=== PATIENT | male | born 1945 | race Caucasian/White ===

== ENCOUNTER 2016-04-07 10:08 | Inpatient (IN) | payer OTHER ==
[~2016-04-07] VITALS: Ht 172.7 cm; Wt 82.1 kg
--- NOTE | ~2016-04-07 | D ---
[facility] [place] [address] DISCHARGE SUMMARY Name: RYAN MORTENSEN Room #: 460-P [facility] IN M.R.#: [id number] Admission: 04/07/16 Attend Phys: Tim Machuca MD Discharge: 04/13/16 Date of : 41 Report #: [id number] THIS REPORT FOR: //name// CC: Tim Locke DATE OF SERVICE: 04/12/2016 TYPE OF DICTATION: Discharge Summary. After bngp-bm-cnnw encounter, I did see the patient and examined him on the day of discharge, 04/12/2016. DISCHARGE DIAGNOSES: 1. Chronic obstructive pulmonary disease exacerbation. 2. Hypertension. 3. Hyperlipidemia. 4. Gastroesophageal reflux disease. 5. Coronary artery disease, status post stents x 1. 6. Peripheral vascular disease. 7. Insulin-dependent diabetes mellitus. 8. Arthritis. 9. Acute lower respiratory infection and bronchitis. 10. Acute hypoxic respiratory failure, resolved. 11. Sleep disorder, may be ____ obstructive sleep apnea with recommendation of PSG as an outpatient. DISCHARGE MEDICATIONS: See discharge summary. HOSPITAL COURSE: The patient was admitted to the hospital secondary to COPD exacerbation and short of breath. The patient was started on antibiotics and bronchodilators and steroids. Influenza was checked, nicotine patch was applied to him and counseling for smoking cessation and BiPAP in the same time. Pulmonary were consulted on admission and the patient was seen by Dr. Jewell in consultation and he recommended DuFan, followup chest x-ray, Rocephin, Zithromax, together flu screen, sputum culture and sensitivity and all the tests for pneumonia and to continue BiPAP. The patient started to improve during his stay in the hospital. His acute respiratory failure was resolved and he does not need any oxygen any more. On the day of discharge, Dr. Jewell did see the patient and he stated that he can go home from a pulmonary side and he recommended him to do steroid taper over 7 days and finish 7 days of antibiotics, continue with bronchodilators and O2 and outpatient PSG. The patient's blood sugars were elevated and we were following that. His hemoglobin was dropped from 10 to 5 and I did follow on that today and it came back to 10.9 again, so I do not think he is losing any blood. In the same time, his blood sugar is still elevated, so I recommended him to follow up with his primary care [address] [address] DISCHARGE SUMMARY Name: RYAN MORTENSEN Room #: 460-P [facility] IN M.R.#: [id number] Admission: 04/07/16 Attend Phys: Tim Machuca MD Discharge: 04/13/16 Date of : 41 Report #: [id number] doctor. He may need some kind of insulin after he stopped taking the steroids. The patient is stable going to home to follow with Pulmonary as an outpatient. <ELECTRONICALLY SIGNED> By: Shelby Carter MD 04/13/16 1708 1009 1029 Shelby Carter MD /candy
--- NOTE | ~2016-04-07 | EKG ---
[address] [address] ELECTROCARDIOGRAM REPORT Name: RYAN MORTENSEN Room #: 170-1 ADM IN M.R.#: [id number] Admission: 04/07/16 Attend Phys: Tim Machuca MD Discharge: Date of : 41 Report #: [id number] THIS REPORT FOR: //name// [facility] ED Test Date: 2016-04-07 Test Time: 10:10:03 Pat Name: RYAN FESTUS Department: Room: 170 Gender: M Warp Hauler: JENNIFER DAVIS : 1945 Requested By: Angel Beard Order Number: [id number] MD: Michi Ramirez Measurements Intervals [place] Rate: 131 P: MO: QRS: 0 QRSD: 112 T: 250 QT: 370 QTc: 547 Interpretive Statements Possible Atrial fibrillation PVCs. Significant artifact making interpretaiton challenging. Electronically Signed On 04-07-2016 14:19:28 AIRLINE RESERVATION AGENT by Michi Ramirez [email or web address] <ELECTRONICALLY SIGNED> By: Michi Ramirez MD 04/07/16 1419 1010 1010 MD MILES Herman
--- NOTE | ~2016-04-07 | EKG ---
[address] [place] [address] ELECTROCARDIOGRAM REPORT Name: RYAN MORTENSEN Room #: 170-1 ADM IN M.R.#: [id number] Admission: 04/07/16 Attend Phys: Tim Machuca MD Discharge: Date of : 41 Report #: [id number] THIS REPORT FOR: //name// [facility] ED Test Date: 2016-04-07 Test Time: 10:35:04 Pat Name: RYAN MORTENSEN Department: Room: 170 1 Gender: M Traffic Ii Manager: Jamia GALLARDO : 1945 Requested By: Angel Beard Order Number: [id number] MD: Michi Ramirez Measurements Intervals [place] Rate: 85 P: 42 NE: 115 QRS: 55 QRSD: 92 T: 34 QT: 379 QTc: 451 Interpretive Statements Sinus rhythm Paired ventricular premature complexes Borderline low voltage, extremity leads Electronically Signed On 04-07-2016 14:20:12 BLASTING ENTRYMAN by Michi Ramirez [email or web address] <ELECTRONICALLY SIGNED> By: Michi Ramirez MD 04/07/16 1420 1035 1035 MD MILES Herman
[2016-04-07 10:08] VITALS: BP 153/75
[~2016-04-07 10:08] MED LIST: ACCUPRIL40 MG PO; ACETAMINOPHEN325 MG PO; AMARYL2 MG PO; ASPIRIN325 PO; ASPIRIN81 M2 PO; CARVEDILOL6.25 MG PO; IBUPROFEN200 M1 PO; METFORMIN HCL500 MG PO; NEXIUM40 MG PO; NITROGLYCERIN0.4 MG SUBLING; PLAVIX 75 MG TA75 M1 PO; SPIRIVA INH; VENTOLIN HFA 1818 GM INH; ZANTAC 150MG T150 M1 PO; ZANTAC 150MG T150 MG PO; ZOCOR40 MG PO
[2016-04-07 10:42] LABS: ANION GAP 9 mmol/L (7-16); BUN 17 mg/dL (7-18); CALCIUM 8.7 mg/dL (8.5-10.1); CHLORIDE 102 mmol/L (98-107); CO2 29 mmol/L (21-32); GLUCOSE 149 mg/dL (70-99); POTASSIUM 4.3 mmol/L (3.5-5.1); SODIUM 140 mmol/L (136-145)
[2016-04-07 10:47] LABS: ABSOLUTE NEUTROPHILS 13.2 thou/uL (1.4-8.2); BASOPHILS 0.8 % (0.0-2.0); EOSINOPHILS 0.6 % (0.0-3.0); HEMATOCRIT 35.1 % (42.0-52.0); HEMOGLOBIN 10.4 gm/dL (14.0-18.0); LYMPHOCYTES 12.2 % (24.0-44.0); MCH 20.3 pg (26.0-34.0); MCHC 29.6 % (28.0-37.0); MCV 68.7 fL (80.0-100.0); MONOCYTES 7.5 % (1.0-8.0); PLATELET COUNT 259 thou/uL (150-400); POLYS 78.9 % (36.0-66.0); RBC 5.11 mil/uL (4.50-6.00); WBC 16.7 thou/uL (4.0-11.0)
[2016-04-07 10:56] LABS: ALBUMIN 3.6 g/dL (3.4-5.0); ALKALINE PHOSPHATASE 55 U/L (46-116); DIRECT BILIRUBIN 0.3 mg/dL (<0.1-0.3); NT-PRO BRAIN NAT PEPTIDE 2417 pg/mL (<300); SGOT 16 U/L (15-37); SGPT 27 U/L (30-65); TOTAL PROTEIN 7.5 g/dL (6.4-8.2); TROPONIN-I < 0.04 ng/mL (<0.04-0.07)
[2016-04-07 11:05] LABS: MANUAL DIFF NO
[2016-04-07 11:23] LABS: ANISOCYTOSIS 2+; HYPOCHROMASIA 2+; MICROCYTES 2+
[2016-04-07 11:24] LABS: LARGE PLATELETS FEW; POLYCHROMASIA SLIGHT
[2016-04-07] MEDS ORDERED: AMARYL4 MG PO (11:28)
[2016-04-07] MEDS ORDERED: VENTOLIN HFA 1818 GM INH (11:30)
[2016-04-07 12:10] LABS: ABG SAMPLE TYPE ARTERIAL; BE(vivo) -1.4 mmol/L (-2 to +3); HCO3 23.4 mmol/L (22.0-26.0); LACTATE 1.34 mmol/L (0.5-2.0); O2(CT) 14.7 mL/dL (15.0-23.0); O2Hb 96.1 % (92.0-98.0); PCO2 39.2 mmHg (35.0-45.0); PO2 131.1 mmHg (80.0-100.0); pH 7.393 (7.360-7.450); sO2 98.6 % (92.0-98.0); tCO2 24.6 mmol/L (24.0-30.0)
[2016-04-07 12:11] LABS: Pressure Support 6 cm H20; STICK SITE R.RADIAL
[2016-04-07 15:27] VITALS: BP 121/67
[2016-04-07 15:55] VITALS: BP 115/55
[2016-04-08 04:17] VITALS: BP 111/63
[2016-04-08 08:11] VITALS: BP 142/89
[2016-04-08 12:25] VITALS: BP 142/89
[2016-04-08 16:48] VITALS: BP 128/51
[2016-04-08 20:38] VITALS: BP 142/54
[2016-04-09 04:29] VITALS: BP 116/78
[2016-04-09 08:20] VITALS: BP 106/49
[2016-04-09 12:45] VITALS: BP 136/59
[2016-04-09 16:00] VITALS: BP 112/44
[2016-04-09 16:43] LABS: HEMATOCRIT 32.7 % (42.0-52.0); HEMOGLOBIN 9.9 gm/dL (14.0-18.0); MCH 20.3 pg (26.0-34.0); MCHC 30.1 % (28.0-37.0); MCV 67.4 fL (80.0-100.0); PLATELET COUNT 239 thou/uL (150-400); RBC 4.85 mil/uL (4.50-6.00); RDW 18.9 % (10.5-14.5)
[2016-04-09 16:48] LABS: MANUAL DIFF YES
[2016-04-09 17:00] LABS: ALBUMIN 3.4 g/dL (3.4-5.0); CREATININE 1.3 mg/dL (0.6-1.3); POTASSIUM 4.2 mmol/L (3.5-5.1); TOTAL BILIRUBIN 0.6 mg/dL (<0.1-1.0)
[2016-04-09 17:06] LABS: ABSOLUTE NEUTROPHILS 15.3 thou/uL (1.4-8.2); ANISOCYTOSIS 1+; MICROCYTES 1+; TOTAL CELL COUNT 100
[2016-04-09 20:00] VITALS: BP 125/64
[2016-04-10 04:00] VITALS: BP 93/42
[2016-04-10 07:48] VITALS: BP 123/53
[2016-04-10 11:35] VITALS: BP 125/53
[2016-04-10 15:47] VITALS: BP 128/50
[2016-04-10 20:16] VITALS: BP 131/59
[2016-04-11 03:16] VITALS: BP 108/48
[2016-04-11 06:19] LABS: HEMATOCRIT 30.7 % (42.0-52.0); HEMOGLOBIN 9.4 gm/dL (14.0-18.0); MCH 20.4 pg (26.0-34.0); MCHC 30.5 % (28.0-37.0); RBC 4.59 mil/uL (4.50-6.00); RDW 18.9 % (10.5-14.5); WBC 9.7 thou/uL (4.0-11.0)
[2016-04-11 06:34] LABS: CALCIUM 8.6 mg/dL (8.5-10.1); CREATININE 0.9 mg/dL (0.6-1.3); POTASSIUM 4.6 mmol/L (3.5-5.1)
[2016-04-11 07:56] VITALS: BP 102/52
[2016-04-11 11:19] VITALS: BP 112/56
[2016-04-11 15:33] VITALS: BP 116/65
[2016-04-11 20:17] VITALS: BP 131/43
[2016-04-12 05:03] VITALS: BP 126/65
[2016-04-12 07:40] VITALS: BP 121/61
[2016-04-12 11:27] VITALS: BP 125/77
[2016-04-12 15:48] VITALS: BP 128/63
[2016-04-12 19:29] VITALS: BP 134/65
[2016-04-13 04:16] VITALS: BP 125/69
[2016-04-13 07:49] VITALS: BP 123/75
[2016-04-13 09:15] LABS: HEMATOCRIT 34.6 % (42.0-52.0); HEMOGLOBIN 10.5 gm/dL (14.0-18.0); MCH 20.3 pg (26.0-34.0); MCHC 30.4 % (28.0-37.0); MCV 66.9 fL (80.0-100.0); PLATELET COUNT 226 thou/uL (150-400); RBC 5.17 mil/uL (4.50-6.00); WBC 10.9 thou/uL (4.0-11.0)
[2016-04-13 09:16] LABS: MANUAL DIFF YES
[2016-04-13 09:28] LABS: CALCIUM 8.9 mg/dL (8.5-10.1); CREATININE 1.1 mg/dL (0.6-1.3); MAGNESIUM 2.1 mg/dL (1.8-2.4); POTASSIUM 4.2 mmol/L (3.5-5.1)
[2016-04-13] MEDS ORDERED: CEFUROXIME500 MG PO (10:14)
[2016-04-13] MEDS ORDERED: NICOTINE TRANSD21 M1 TRANSDERM (10:14)
[2016-04-13] MEDS ORDERED: PREDNISONE 10 M10 MG PO (10:14)
[2016-04-13 10:25] LABS: ABSOLUTE NEUTROPHILS 9.2 thou/uL (1.4-8.2); TOTAL CELL COUNT 100
[2016-04-13 10:27] LABS: ANISOCYTOSIS 1+; HYPOCHROMASIA SLIGHT; MICROCYTES 1+; POLYCHROMASIA SLIGHT
[2016-04-13 10:40] VITALS: BP 123/75
== END 2016-04-13 11:40 | disposition home or self-care (01) | DRG 193 ==
LOC: ER 10:08 → 4W 12:03 → EROBS 12:03 → 4W 15:28
PROVIDERS: Family Medicine; Hospitalist; Nurse Practitioner; Nurse Practitioner Family
PROC: 5A09357 Assistance with Respiratory Ventilation, Less than 24 Consecutive Hours, Continuous Positive Airway Pressure (ICD-10-PCS; principal; 2016-04-11)
DX: J18.9 Pneumonia, unspecified organism (principal); J96.21 Acute and chronic respiratory failure with hypoxia; J44.1 Chronic obstructive pulmonary disease with (acute) exacerbation; J44.0 Chronic obstructive pulmonary disease with (acute) lower respiratory infection; K21.9 Gastro-esophageal reflux disease without esophagitis; I10 Essential (primary) hypertension; E78.5 Hyperlipidemia, unspecified; I25.10 Atherosclerotic heart disease of native coronary artery without angina pectoris; M19.90 Unspecified osteoarthritis, unspecified site; F17.210 Nicotine dependence, cigarettes, uncomplicated; G47.33 Obstructive sleep apnea (adult) (pediatric); E11.51 Type 2 diabetes mellitus with diabetic peripheral angiopathy without gangrene; G47.9 Sleep disorder, unspecified; D72.829 Elevated white blood cell count, unspecified; Z79.899 Other long term (current) drug therapy; I25.2 Old myocardial infarction; Z95.5 Presence of coronary angioplasty implant and graft; Z98.890 Other specified postprocedural states; Z79.4 Long term (current) use of insulin; Z80.9 Family history of malignant neoplasm, unspecified; Z82.49 Family history of ischemic heart disease and other diseases of the circulatory system
CPT/HCPCS: 10045

== ENCOUNTER → 2016-04-28 | Outpatient (CLI) | payer OTHER ==
[~2016-04-28] MED LIST changes: +AMARYL4 MG PO; +CEFUROXIME500 MG PO; +NICOTINE TRANSD21 M1 TRANSDERM; +PREDNISONE 10 M10 MG PO
--- NOTE | ~2016-04-28 | EKG ---
[place] [address] [facility] [employer] [address] ELECTROCARDIOGRAM REPORT Name: RYAN MORTENSEN [id number] Admission: 04/28/16 Attend Phys: Shaquille Jewell MD Discharge: Date of : 41 Report #: [id number] THIS REPORT FOR: //name// [facility] Test Date: 2016-04-28 Test Time: 14:57:59 Pat Name: RYAN MORTENSEN Department: Room: Gender: Hotel General Manager: Deirdre CASTILLO : 1945 Requested By: Shaquille Jewell Order Number: [id number] MD: Matthias Sparks Measurements Intervals [place] Rate: 99 P: 41 MS: 115 QRS: 42 QRSD: 97 T: 2 QT: 378 QTc: 486 Interpretive Statements Sinus rhythm Ventricular bigeminy Borderline short MS interval Nonspecific ST segment abnormality No previous ECGs available for comparison Electronically Signed On 04-29-2016 13:38:26 WASHTUB WORKER by Matthias Sparks [email or web address] <ELECTRONICALLY SIGNED> By: Matthias Sparks MD, [facility] 04/29/16 1338 1457 1457 Matthias Sparks MD, FACC /EPI
== END ==
LOC: CV 14:38
DX: R53.83 Other fatigue (principal); R00.1 Bradycardia, unspecified